=== PATIENT | female | born 1955 | race Caucasian/White ===

== ENCOUNTER 2017-04-08 15:49 | Emergency (ER) | payer OTHER ==
[~2017-04-08] VITALS: Ht 160 cm; Wt 97.5 kg
[~2017-04-08 15:49] MED LIST: ASPIRIN81 M2 PO; ATORVASTATIN CA40 MG PO; B-121000 MC2 PO; CARTIA XT240 M1 PO; CELEXA20 MG PO; CLEOCIN HCL300 MG PO; CYCLOBENZAPRINE5 MG PO; DICLOFENAC SODI75 MG PO; FUROSEMIDE 20 M20 MG PO; GLUCOPHAGE1000 MG; GLUCOPHAGE1000 MG PO; KEFLEX500 MG PO; LEVOTHYROXIN0.075 MG PO; LISINOPRIL2.5 MG PO; LOPRESSOR50 PO; MAGOX 400400 MG PO; NITROGLYCERIN0.4 MG SUBLING; NORCO 5-325 TA1 EACH PO; OMEPRAZOLE20 M1 PO; OXYBUTYNIN 5 MG5 M2 PO; POTASSIUM20 PO; XANAX 0.5 MG0.5 MG PO
[2017-04-08 16:56] LABS: URINE BILIRUBIN NEGATIVE (Negative); URINE BLOOD TRACE (Negative); URINE COLOR YELLOW; URINE GLUCOSE-RANDOM* 3+ (Negative); URINE KETONES NEGATIVE (Negative); URINE NITRITE POSITIVE (Negative); URINE PROTEIN (DIPSTICK) NEGATIVE (Negative); URINE SPECIFIC GRAVITY <= 1.005 (1.003-1.035); URINE UROBILINOGEN 0.2 E.U./dl (0.2-1.0)
[2017-04-08 17:01] LABS: CASTS None Seen /LPF (None Seen)
[2017-04-08 17:02] LABS: CRYSTALS None Seen /LPF (None Seen); SQUAMOUS >10 Many /LPF (0-3); URINE WBC 6-15 Few /HPF (0-5)
[2017-04-08 17:03] LABS: URINE RBC 0-2 Rare /HPF (0-2)
[2017-04-08] MEDS ORDERED: NORFLEX100 MG PO (18:25)
[2017-04-08] MEDS ORDERED: DIFLUCAN200 MG PO (18:25)
[2017-04-08] MEDS ORDERED: CIPRO500 MG PO (18:25)
[2017-04-08 19:25] VITALS: BP 125/77
== END 2017-04-08 19:25 | disposition home or self-care (01) ==
LOC: ER 15:49
PROVIDERS: Nurse Practitioner Family
DX: M54.12 Radiculopathy, cervical region (principal); E11.65 Type 2 diabetes mellitus with hyperglycemia; N39.0 Urinary tract infection, site not specified; Z91.14 Patient's other noncompliance with medication regimen; B37.3 Candidiasis of vulva and vagina; I10 Essential (primary) hypertension; E78.00 Pure hypercholesterolemia, unspecified; Z79.82 Long term (current) use of aspirin